=== PATIENT | male | born 1995 | race Caucasian/White ===

== ENCOUNTER 2020-02-17 15:52 | Emergency (ER) | payer OTHER ==
[2020-02-17] MEDS ORDERED: Lidocaine 1% w/Epinephrine 1:100K 20 ML VIAL ONE (18:17)
[2020-02-17] MEDS ORDERED: Bacitracin 1 PK ONE (18:40)
== END 2020-02-17 18:49 | disposition home or self-care (01) ==
LOC: ERS 15:52
DX: S51.812A Laceration without foreign body of left forearm, initial encounter (principal); W26.8XXA Contact with other sharp object(s), not elsewhere classified, initial encounter
CPT/HCPCS: 12002